=== PATIENT | female | born 1995 | race American Indian/Alaskan Native ===

== ENCOUNTER 2019-02-04 21:40 | Emergency (ER) | payer SELFPAY ==
[2019-02-05 00:18] VITALS: BP 106/65
== END 2019-02-05 02:20 | disposition left against medical advice (07) ==
LOC: ED 21:40
DX: F41.9 Anxiety disorder, unspecified (principal); Z53.21 Procedure and treatment not carried out due to patient leaving prior to being seen by health care provider